=== PATIENT | female | born 1975 | race Caucasian/White ===

== ENCOUNTER 2016-12-16 13:01 | Emergency (ER) | payer BC ==
[~2016-12-16] VITALS: Ht 165.1 cm; Wt 97.6 kg
[2016-12-16 14:15] LABS: ADD MIUA? YES; BILIRUBIN NEGATIVE; BLOOD LARGE; COLOR YELLOW ((YELLOW)); GLUCOSE (STRIP) NEGATIVE; KETONES NEGATIVE; LEUKOCYTES NEGATIVE; NITRITE NEGATIVE; PROTEIN (STRIP) NEGATIVE; SPECIFIC GRAVITY 1.008 (1.000-1.030); UROBILINOGEN 0.2 MG/DL (0.2-1.0)
[2016-12-16 14:24] LABS: HEMATOCRIT 37.6 % (36.0-46.0); MCH 27.4 PG (29.0-34.0); MCHC 31.4 G/DL (30.0-36.0); MCV 87.2 FL (83-99); MEAN PLAT.VOLUME 10.6 uM^3 (9.5-12.4); PLATELET COUNT 520 K/uL (156-360); RBC DIS.WIDTH-SD 51.1 % (39-53); RED BLOOD COUNT 4.31 M/uL (3.80-5.20); WHITE BLOOD COUNT 7.4 K/uL (4.1-10.2)
[2016-12-16 14:35] LABS: CHLORIDE 105 mEq/L (99-109); POTASSIUM 3.9 mEq/L (3.7-5.4); SODIUM 140 mEq/L (136-147)
[2016-12-16 14:36] LABS: BACTERIA RARE /HPF; CALCIUM OXALATE CRYSTALS 3+ /HPF; EPITHELIAL CELLS RARE /HPF; MUCUS TRACE /LPF; RED BLOOD CELLS TNTC /HPF (0-5); UCUL ADDED? NO; WHITE BLOOD CELLS 0-5 /HPF (0-5)
[2016-12-16 14:37] LABS: GLUCOSE 99 mg/dL (70-99)
[2016-12-16 14:38] LABS: ANION GAP 9 MEQ/L (2-14)
[2016-12-16 14:39] LABS: TOTAL BILIRUBIN 0.7 mg/dL (0.0-1.0)
[2016-12-16 14:41] LABS: ALKALINE PHOSPHATASE 81 IU/L (3-129)
[2016-12-16 14:42] LABS: UREA NITROGEN (BUN) 11 mg/dL (9-23)
[2016-12-16 14:43] LABS: GFR ESTIMATE (CALCULATED) > 59 mL/min/
[2016-12-16 14:51] LABS: QUANTITATIVE HCG < 4.0 MIU/ML
[2016-12-16] MEDS ORDERED: FLEXERIL5 MG PO (19:09)
[2016-12-16] MEDS ORDERED: TRAMADOL HCL50 MG PO (19:09)
[2016-12-16] MEDS ORDERED: NAPROSYN500 MG PO (19:09)
[2016-12-16 19:18] VITALS: BP 154/117
== END 2016-12-16 19:19 | disposition home or self-care (01) ==
LOC: EME 13:01
DX: R10.9 Unspecified abdominal pain (principal); M54.9 Dorsalgia, unspecified
CPT/HCPCS: 74176; 80053; 81003; 84702; 85027; 99281; 99284